=== PATIENT | male | born 2000 | race Caucasian/White ===

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

== ENCOUNTER 2019-06-02 16:41 | Emergency (ER) | payer BC ==
[~2019-06-02] VITALS: Ht 165.1 cm; Wt 62.6 kg
[2019-06-02] MEDS ORDERED: CEPHALEXIN500 M1 PO (19:28)
[2019-06-02] MEDS ORDERED: NAPROSYN500 MG PO (19:28)
== END 2019-06-02 19:42 | disposition home or self-care (01) ==
LOC: ED 16:41
DX: S93.402A Sprain of unspecified ligament of left ankle, initial encounter (principal); S30.0XXA Contusion of lower back and pelvis, initial encounter; V19.88XA Pedal cyclist (driver) (passenger) injured in other specified transport accidents, initial encounter; Y93.55 Activity, bike riding; Y92.413 State road as the place of occurrence of the external cause; Y99.9 Unspecified external cause status